=== PATIENT | female | born 1995 | race Caucasian/White ===

== ENCOUNTER 2017-02-18 12:20 | Emergency (ER) | payer OTHER ==
--- NOTE | 2017-02-21 09:47 | ER ---
ADMIT: 02/18/2017 RM/LOC: ER [facility] MR#: [id number] [address] [id number] [place] [address] Emergency Room Report SEX: F AGE: 21 : 1995 DATE: 02/18/2017 ADDENDUM: CHIEF COMPLAINT: Hypertension. HISTORY OF PRESENT ILLNESS: This is a 21-year-old female, who is 17 weeks . She has known hypertension since the age of 11. Her OB knows that she has hypertension. She has a script for labetalol 400 mg twice a day. She has not taking since because she was placed in correction. But according to the police officers after they leave the ER, they are actually already going to [facility] her prescription. They just did not know if there is anything else that needs to be done, so they brought her in to the ER. At this time since she is only 17 weeks there is no further testing that needs to be done Social history: She has known hypertension. She was already on that prescription. They are okay to go to [facility]' [facility] the prescription and follow up as needed. CLINICAL IMPRESSION: Hypertension. DAVIDA Jonas / Yaakov Quinonez MD / aaronl JOB #: [id number] CC: Yaakov Quinonez MD, Attending Physician
== END 2017-02-18 12:59 | disposition home or self-care (01) ==
LOC: ER 12:20
DX: O10.912 Unspecified pre-existing hypertension complicating pregnancy, second trimester (principal); O99.332 Smoking (tobacco) complicating pregnancy, second trimester; F17.210 Nicotine dependence, cigarettes, uncomplicated; Z3A.17 17 weeks gestation of pregnancy; Z79.899 Other long term (current) drug therapy